=== PATIENT | male | born 1985 | race Caucasian/White ===

== ENCOUNTER 2019-12-02 07:39 | Emergency (ER) | payer OTHER, SELFPAY ==
[2019-12-02 07:45] VITALS: BP 159/85; PULSE 69; RESP 20; TEMP 37; O2SAT 98
--- NOTE | 2019-12-02 07:47 | ED.EYEPROB ---
HPI - Eye Problem General Chief complaint: Eye Problems Stated complaint: poked in eye Time Seen by Provider: 12/02/19 08:06 Source: patient Mode of arrival: ambulatory Limitations: no limitations History of Present Illness HPI Narrative: 34-year-old man comes in the emergency department this morning complaining of right eye pain worsened with bright lights and tearing. Patient states that approximately 10:00 a.m. yesterday he inadvertently scratched his right eye with his finger. There is no history of eye surgery or contact lenses. No history of welding or giang for use. He used Visine initially. chief complaint: eye pain and eye redness Onset (ago): day(s) Onset description: sudden Duration: constant Location: right eye Eye Symptoms: photophobia Place: home Mechanism: direct trauma Severity: moderate If Pain, Quality: sharp Treatments Prior to Arrival: OTC eye drops Related Data Patient tetanus UTD: Yes Allergies Allergy/AdvReac Type Severity Reaction Status Date / Time No Known Allergies Allergy Verified 12/02/19 08:13 Review of Systems Constitutional: Constitutional: Denies chills, Denies fever(s) and Denies weakness Eyes: Eyes: Denies change in vision and Denies photophobia ENT: Denies dysphagia, Denies nasal congestion and Denies sore throat Cardiovascular: Cardiovascular: Denies chest pain and Denies radiating jaw, neck or arm pain Respiratory: Respiratory: Denies cough and Denies dyspnea Gastrointestinal: Gastrointestinal: Denies abdominal pain, Denies nausea and Denies vomiting Integumentary/Breasts: Skin/Breast: Denies pruritus, Denies erythema and Denies rash Neurologic: Denies vertigo, Denies dizziness and Denies syncope Hematologic/Lymphatic: Hematologic/Lymphatic: Denies easy bleeding and Denies easy bruising Allergic/Immunologic: Allergic/Immunologic: Denies lip swelling and Denies wheezing PMFSH Past Medical History Medical History (Updated 12/02/19 @ 08:23 by Jayy Soto MD) Right otitis media Social History Social History (Updated 12/02/19 @ 08:18 by Jayy Soto MD) Smoking status: Current every day smoker Exam Const: General: alert Orientation/consciousness: patient oriented x3 Limitations: no limitations Other: mild acute distress. HENMT: Ears: EAC's normal and TM abnormal (right) bulging and other ( Purulent effusion) Eyes: Conjunctivae: conjunctival abnormality (conjunctiva edematous and injected, temporal linear abrasion, ) right Cornea: corneas abnormal on the right fluorescein used and abrasion central and at the following clock position (6:00) and fluorescein used Pupils: Equal, round and reactive pupils present EOM: EOMs intact bilaterally Resp: Effort & Inspection: normal respiratory effort and not labored Auscultation: clear to auscultation bilaterally, no rales, no rhonchi and no wheezes Cardio: Rate: regular rate Rhythm: regular rhythm Heart sounds: no murmurs Skin: General skin exam: normal color, no jaundice and no pallor Rashes: no rashes Neuro: General: patient oriented x3, moves all extremities, no focal motor deficits and CN's II-XI intact bilaterally Speech: normal speech Extrem: General: normal to inspection and no clubbing, cyanosis or edema Psych: Appearance: grossly normal and well kempt Mental Status: mental status grossly normal Affect: normal affect Attitude: cooperative Thought content: Yes Normal thought content present Discharge Plan Discharge Clinical Impression: Abrasion, corneal Qualifiers: Encounter type: initial encounter Laterality: right Qualified Code(s): S05.01XA - Injury of conjunctiva and corneal abrasion without foreign body, right eye, initial encounter Instructions: Corneal Abrasion (ED) Additional Instructions: Follow up with Snow Removal Supervisor if no improvement in 24 hours. Prescriptions: New erythromycin 5 mg/gram (0.5 %) ointment 0.5 inch RIGHTEYE QID Qty: 1 RF: 1 Follow
[2019-12-02] MEDS: TETRACAINE HCL 0.5% OPHTH SOLN 4 ML BTL 1 DROP RIGHT EYE (07:50)
[2019-12-02] MEDS: FLUORESCEIN SOD 1 MG/STRIP RIGHT EYE (08:00)
== END 2019-12-02 08:33 | disposition home or self-care (01) ==
LOC: CHSED 07:43
PROVIDERS: Emergency Provider Emergency Medicine; PCP Family Medicine
DX: S05.01XA Injury of conjunctiva and corneal abrasion without foreign body, right eye, initial encounter (principal); X58.XXXA Exposure to other specified factors, initial encounter
CPT/HCPCS: 99283

== ENCOUNTER 2021-09-25 14:00 | Emergency (ER) | payer OTHER, SELFPAY ==
--- NOTE | 2021-09-25 14:21 | PC.NURSE ---
Pt not in waiting room at this time. Per screener pt walked out and was seen getting in a car and leaving hospital.
== END 2021-09-25 14:05 | disposition left against medical advice (07) ==
PROVIDERS: Emergency Provider Emergency Medicine; PCP Family Medicine
DX: Z04.9 Encounter for examination and observation for unspecified reason (principal)
CPT/HCPCS: 99199

== ENCOUNTER 2021-09-25 16:17 | Emergency (ER) | payer OTHER, SELFPAY ==
[2021-09-25 16:30] VITALS: BP 147/97; PULSE 75; RESP 20; TEMP 36.3; O2SAT 96
--- NOTE | 2021-09-25 16:35 | ED.EAR ---
HPI - Ear Problem General Chief complaint: Ear Stated complaint: LEFT EAR PAIN/DRAINAGE Time Seen by Provider: 09/25/21 16:43 Source: patient Mode of arrival: ambulatory Limitations: no limitations History of Present Illness HPI Narrative: 36-year-old man comes in today complaining of bleeding from his left ear that started a few hours ago. He states that 2 days ago he began to have pressure in his ear and it sounded like he was underwater. He came in from the outdoors today, blew his nose and then noticed dark fluid coming from his left ear. He denies pain. He has a chronic right ear infection which is being treated by his primary care doctor. He has had no fever, dizziness or vomiting. MD Complaint: ear discharge Location: left ear Duration: intermittent Severity: moderate Relieving factors: nothing Exacerbating factors: nothing Context: Reports recent illness Discharge from ear: Reports yes - bloody Treatment prior to arrival: none Related Data Allergies Allergy/AdvReac Type Severity Reaction Status Date / Time No Known Allergies Allergy Verified 12/02/19 08:13 Review of Systems Review of Systems: All systems reviewed & are unremarkable except as noted in HPI and below Constitutional: Constitutional: Denies chills and Denies fever(s) Eyes: Eyes: Denies change in vision and Denies photophobia ENT: Reports as per HPI, Denies nasal congestion and Denies sore throat Cardiovascular: Cardiovascular: Denies chest pain and Denies radiating jaw, neck or arm pain Respiratory: Respiratory: Denies cough and Denies dyspnea Gastrointestinal: Gastrointestinal: Denies abdominal pain, Denies nausea and Denies vomiting Musculoskeletal: Musculoskeletal: Denies back pain, Denies arthralgias and Denies joint swelling Integumentary/Breasts: Skin/Breast: Denies pruritus, Denies erythema and Denies rash Neurologic: Denies vertigo, Denies dizziness and Denies syncope Hematologic/Lymphatic: Hematologic/Lymphatic: Denies easy bleeding and Denies easy bruising Allergic/Immunologic: Allergic/Immunologic: Denies lip swelling and Denies throat swelling PMFSH Past Medical History Medical History (Updated 09/25/21 @ 16:54 by Jayy Soto MD) Right otitis media Surgical History Surgical History (Updated 09/25/21 @ 16:51 by Jayy Soto MD) History of ear surgery As a child, right Social History Social History (Updated 09/25/21 @ 16:52 by Jayy Soto MD) Smoking status: Current every day smoker Living arrangements: with family Exam Const: General: healthy appearing, no acute distress and alert Orientation/consciousness: patient oriented x3 Limitations: no limitations HENMT: Ears: TM abnormal erythematous on the left and perforated with bloody discharge Face and sinus: normal facial exam Mouth: Yes moist mucous membranes Throat: posterior oropharynx normal Eyes: Conjunctivae: conjunctivae normal Pupils: Equal, round and reactive pupils present EOM: EOMs intact bilaterally Resp: Effort & Inspection: normal respiratory effort and not labored Auscultation: clear to auscultation bilaterally, no rales, no rhonchi and no wheezes Cardio: Rate: regular rate Rhythm: regular rhythm Heart sounds: no murmurs Neuro: General: patient oriented x3, moves all extremities, no focal motor deficits and CN's II-XI intact bilaterally Speech: normal speech Gait exam (Neuro): Normal gait present Extrem: General: normal to inspection and no clubbing, cyanosis or edema Psych: Appearance: grossly normal and well kempt Mental Status: mental status grossly normal Affect: Anxious affect present Attitude: cooperative Thought content: Yes Normal thought content present Discharge Plan Discharge Clinical Impression: Perforation of tympanic membrane Qualifiers: Laterality: left Qualified Code(s): H72.92 - Unspecified perforation of tympanic membrane, left ear Patient Disposition: Home, Self-Care Condition:
[2021-09-25 16:59] VITALS: BP 154/91; PULSE 75; RESP 20; TEMP 36.3; O2SAT 96
== END 2021-09-25 17:00 | disposition home or self-care (01) ==
PROVIDERS: Emergency Provider Emergency Medicine; PCP Family Medicine
DX: H72.92 Unspecified perforation of tympanic membrane, left ear (principal)
CPT/HCPCS: 99283

== ENCOUNTER 2022-05-26 10:15 | Outpatient (CLI) | payer OTHER, SELFPAY ==
--- NOTE | ~2022-05-26 | XR_ITS ---
EXAMINATION: XR lumbar spine 2-3V DATE: 05/26/2022 10:33 INDICATION: Low back pain radiating down the left. TECHNIQUE: 3 views of lumbar spine were obtained. COMPARISON: Lumbar spine radiograph 11/30/2017 FINDINGS: Bone alignment is normal. Vertebral body heights are normal. There is mildly decreased disc height at L5-S1. The facet joints are unremarkable. IMPRESSION: 1. Mild lower lumbar spondylosis. Reviewed, dictated and finalized at location A.
== END 2022-05-26 10:16 | disposition home or self-care (01) ==
LOC: CHSIMG 10:19
PROVIDERS: PCP Family Medicine; Visit Provider Family Medicine
DX: M54.50 Low back pain, unspecified (principal)
CPT/HCPCS: 72100

== ENCOUNTER 2022-10-07 13:43 | Outpatient (CLI) | payer OTHER, SELFPAY ==
[2022-10-07 13:55] LABS: Hematocrit 44.2 % (40.0-54.0); Hemoglobin 15.1 g/dL (14.0-18.0); Mean Corpuscular HGB Conc 34.2 g/dL (32.0-36.0); Mean Corpuscular Hemoglobin 29.8 pg (27.0-31.0); Mean Corpuscular Volume 87.2 fL (78.0-102.0); Mean Platelet Volume 10.9 fl (8.7-11.0); Platelet Count Result 194 K/mm3 (150-420); Red Blood Count 5.07 M/mm3 (4.70-6.10); White Blood Count 7.6 K/mm3 (4.8-10.8)
[2022-10-07 14:20] LABS: Alanine Aminotransferase 27 U/L (16-63); Albumin Level 4.2 g/dL (3.4-5.0); Alkaline Phosphatase 89 U/L (46-116); Anion Gap 9 mmol/L (8-16); Aspartate Amino Transferase 14 U/L (15-37); Bilirubin,Total 0.8 mg/dL (0.00-1.00); Blood Urea Nitrogen 20 mg/dL (7-18); Calcium 9.4 mg/dL (8.5-10.1); Carbon Dioxide 30 mmol/L (21-32); Chloride 105 mmol/L (98-108); Cholesterol 279 mg/dL (0-200); Estimated Glomerular Filt Rate > 60; Glucose 114 mg/dL (70-99); HDL Direct 42 mg/dL (40-60); LDL Cholesterol Calculated 187 mg/dL (<130); Osmolality Calculated 301 mOsm/kg (285-295); Sodium 144 mmol/L (136-145); Total Protein 7.3 g/dL (6.4-8.2); Triglycerides 250 mg/dL (0-150)
== END 2022-10-07 13:44 | disposition home or self-care (01) ==
LOC: CHSLAB 13:45
PROVIDERS: PCP Family Medicine; Visit Provider Family Medicine
DX: R03.0 Elevated blood-pressure reading, without diagnosis of hypertension (principal)
CPT/HCPCS: 36415; 80053; 80061; 85027

== ENCOUNTER 2022-11-17 11:41 | Outpatient (CLI) | payer OTHER, SELFPAY ==
--- NOTE | ~2022-11-17 | XR_ITS ---
Clinical Indication: Wheezing PA and lateral views of the chest: Comparison: 11/30/2017 Findings: The lungs are clear, without evidence of focal consolidation or pleural effusion. Cardiome diastinal silhouette is within normal limits. Bones and soft tissues are unremarkable. Impression: Normal chest. Reviewed, dictated and finalized at [facility]. X DEVELOPER Impression: Normal chest.
== END 2022-11-17 11:42 | disposition home or self-care (01) ==
LOC: CHSIMG 11:43
PROVIDERS: PCP Nurse Practitioner Family; Visit Provider Nurse Practitioner Family
DX: R06.2 Wheezing (principal)
CPT/HCPCS: 71046